=== PATIENT | male | born 1990 | race Asian ===

== ENCOUNTER 2017-05-29 10:11 | Emergency (ER) | payer SELFPAY ==
[2017-05-29 10:33] VITALS: BP 123/84
[2017-05-29] MEDS ORDERED: TETANUS-DIPTH-ACEL PERTUSSIS 0.5ML SYRG IM ONE (11:00)
[2017-05-29] MEDS ORDERED: HYDROcodone-ACET 10/325MG TAB PO ONE (11:30)
[2017-05-29] MEDS ORDERED: BACITRACIN TOP OINT 1 UD PKG TOP ONE (11:30)
== END 2017-05-29 12:02 | disposition home or self-care (01) ==
LOC: ER 10:11
DX: S01.01XA Laceration without foreign body of scalp, initial encounter (principal); W22.8XXA Striking against or struck by other objects, initial encounter; Y93.89 Activity, other specified; Y99.0 Civilian activity done for income or pay; Y92.69 Other specified industrial and construction area as the place of occurrence of the external cause
CPT/HCPCS: 12002; 70450; 90471; 90715